=== PATIENT | female | born 1945 | race Caucasian/White ===

== ENCOUNTER → 2017-10-27 | Outpatient (CLI) | payer MEDICARE, BC ==
[~2017-10-27] MED LIST: CHOL100052 PO; GLAUCOMA EYE DROPS; IBU800 PO; LEV125 PO; MULT-912 PO; OMEG-11 PO; SIMV5TAB56 PO; [UNRECOGNIZED DRUG - CODE] OU
--- NOTE | 2017-10-27 17:32 | RADIOLOGY IMAGING REPORT ---
FACILITY: [facility] PATIENT NAME: SUE SANCHES : [id number] MR: [id number] V: [id number] EXAM DATE: [id number] ORDERING PHYSICIAN: GAURAV NICKERSON TECHNOLOGIST: Phyllis Webb PROCEDURE:BILATERAL DIGITAL SCREENING MAMMOGRAM WITH CAD ASSISTED INTERPRETATION & 3D TOMOSYNTHESIS COMPARISON: Prior mammograms 09/24/2016, 07/10/15, 06/06/14, 05/24/14, 04/20/13 INDICATIONS:SCREENING FINDINGS: A small amount of fibroglandular tissue is seen throughout the breasts. The parenchymal pattern has remained stable allowing for difference in mammographic technique & patient positioning. There is no evidence of malignant appearing mass, malignant appearing calcifications or other secondary sign of malignancy in either breast. DIAGNOSTIC CATEGORY 1--NEGATIVE. RECOMMENDATIONS: ROUTINE MAMMOGRAM AND CLINICAL EVALUATION. IMPRESSION: BIRADS 1: Negative No significant abnormality is seen Dictated by: Magui Apodaca M.D. on 10/27/2017 at 10:53 Transcribed by: DIAN on 10/27/2017 at 12:51 Approved by: Magui Apodaca M.D. on 10/27/2017 at 17:31 [facility]
== END ==
LOC: MAMO 02:22
PROVIDERS: ATTEND Nurse Practitioner Family
DX: Z12.31 Encounter for screening mammogram for malignant neoplasm of breast (principal)
CPT/HCPCS: 77063; 77067

== ENCOUNTER → 2018-12-21 | Outpatient (CLI) | payer MEDICARE, BC ==
--- NOTE | 2018-12-23 08:24 | RADIOLOGY IMAGING REPORT ---
[place] [facility] [place]: SUE SANCHES : [id number] MR: [id number] V: [id number] EXAM DATE: [id number] ORDERING PHYSICIAN: GAURAV NICKERSON TECHNOLOGIST: Phyllis Webb PROCEDURE:BILATERAL DIGITAL SCREENING MAMMOGRAM WITH CAD ASSISTED INTERPRETATION & 3D TOMOSYNTHESIS COMPARISON:Prior mammograms 10/27/17, 09/24/16, 07/10/15, 06/06/14, 05/24/14. INDICATIONS:SCREENING FINDINGS: The breasts are almost entirely fatty. The parenchymal pattern has remained stable allowing for difference in mammographic technique & patient positioning. DIAGNOSTIC CATEGORY 1--NEGATIVE. RECOMMENDATIONS: ROUTINE MAMMOGRAM AND CLINICAL EVALUATION. IMPRESSION: BIRADS 1: Negative. No significant abnormality is seen. Dictated by: Magui Apodaca M.D. on 12/21/2018 at 16:26 Transcribed by: DIAN on 12/22/2018 at 9:20 Approved by: Magui Apodaca M.D. on 12/23/2018 at 8:23 [facility]
== END ==
LOC: MAMO 01:07
PROVIDERS: ATTEND Nurse Practitioner Family
DX: Z12.31 Encounter for screening mammogram for malignant neoplasm of breast (principal)
CPT/HCPCS: 77063; 77067

== ENCOUNTER → 2019-01-06 | Outpatient (CLI) | payer MEDICARE, BC ==
--- NOTE | 2019-01-06 15:14 | RADIOLOGY IMAGING REPORT ---
FACILITY: [facility] - [place] PATIENT NAME: Solitario Figueroa : 1945 MR: [id number] V: [id number] EXAM DATE: ORDERING PHYSICIAN: GAURAV NICKERSON TECHNOLOGIST: Location: [facility] Patient: Solitario Figueroa : 1945 Visit/Account:[id number] Date of Sevice: 01/06/2019 DEXA Scan Clinical history: Postmenopausal. Comparison: DEXA scan from 07/10/2015. LUMBAR SPINE: The bone mineral density (BMD) measured from L1-L4 correlates with a Z-score of 1.1 and a T-score of 0.6 which is Normal as defined by the World Health Organization. The corresponding risk of fracture in the lumbar spine is Not increased compared with a young adult reference population. This value aaron s decreased by 0.4 % since the prior study. More than 5% change is considered significant. HIP: Bone mineral density (BMD) measured in the LEFT total hip region correlates with a Z-score 0.7 and a T-score of zero which is normal as defined by the World Health Organization. The corresponding risk of fracture in the hip is Not i ncreased compared to a young adult reference population. This value has decrease by 5.8 % since the p rior study. More than 5% change is considered significant. T score left femoral neck -0.7 Bone mineral density (BMD) measured in the Femoral Neck region measures 0.947 g/cm?. IMPRESSION: 1. Lumbar spine: Normal. There has been 0.4% decrease in the bone mineral density since the previou s exam. 2. Left Total Hip: Normal. There has been 5.8% decrease in the bone mineral density since the previ ous exam. 3. Femoral Neck: Bone Mineral Density is 0.947 g/cm? The next DEXA scan of this patient should include the following sites: L1-L4 and the left hip. FRAX? WHO Fracture Risk Assessment Tool link: <http://www.shef.ac.uk/FRAX/tool.jsp?locationValue=9> PLEASE NOTE: 1) The World Health Organization defines low BMD as follows: T-score Normal > -1 Osteopenia < -1 and > -2.5 Osteoporosis < -2.5 without fractures Established osteoporosis < -2.5 with fractures 2) In general, you may wish to consider: Diagnosis Treatment Follow-up DEXA Normal BMD Prevention 2-3 years Osteopenia Prevention/therapy 1-2 years Osteoporosis Therapy Yearly 3) Fracture risk estimated from the T-score is more accurate for vertebral fractures (often spontane ous) than for hip fractures. Report Dictated By: Magui Apodaca MD at 01/06/2019 3:09 PM Report E-Signed By: Magui Apodaca MD at 01/06/2019 3:11 PM WSN:[email or web address]
== END ==
LOC: RAD 13:51
PROVIDERS: ATTEND Nurse Practitioner Family
DX: E28.39 Other primary ovarian failure (principal); Z78.0 Asymptomatic menopausal state
CPT/HCPCS: 77080